=== PATIENT | male | born 1980 | race Caucasian/White ===

== ENCOUNTER 2016-09-27 21:15 | Emergency (ER) | payer OTHER ==
[~2016-09-27] VITALS: Ht 172.7 cm; Wt 70.3 kg
[2016-09-27 21:16] VITALS: BP_SYST 115
[2016-09-27] MEDS ORDERED: DIPH-TET-PERTUS Vaccine 0.5 ML VIAL (ADACEL) IM ONE (22:15)
[2016-09-27 22:30] VITALS: BP_SYST 121
== END 2016-09-27 22:30 | disposition home or self-care (01) ==
LOC: SED 21:15
DX: S51.812A Laceration without foreign body of left forearm, initial encounter (principal); W45.8XXA Other foreign body or object entering through skin, initial encounter; Y93.89 Activity, other specified; Y92.89 Other specified places as the place of occurrence of the external cause; Y99.8 Other external cause status
CPT/HCPCS: 90715; 99283

== ENCOUNTER 2019-08-05 09:39 | Emergency (ER) | payer OTHER ==
[~2019-08-05] VITALS: Ht 172.7 cm; Wt 65.8 kg
[2019-08-05 09:46] VITALS: BP_SYST 136
--- NOTE | 2019-08-05 09:50 | NUR ---
ambulated to bed 4
--- NOTE | 2019-08-05 09:55 | NUR ---
Pt walked in to ER with c/o left thumb laceration. Reports he cut it with a kitchen knife last night. States pain is 2/10. Denies any other trauma. V/S stable, pt is afebrile. Currently resting in bed, will continue to monitor.
[2019-08-05] MEDS ORDERED: DIPH-TET-PERTUS Vaccine 0.5 ML VIAL (ADACEL) I.M. ONE (10:00)
[2019-08-05] MEDS ORDERED: LIDOCAINE 1% 10 MG/ML, 20 ML MDV SUBCUT ONE (10:00)
[2019-08-05] MEDS ORDERED: BACITRACIN 1 GM OINT TP ONE (10:00)
--- NOTE | 2019-08-05 10:00 | NUR ---
ER Dr. Logan at bedside examining patient.
--- NOTE | 2019-08-05 10:05 | NUR ---
Wound irrigated with NS and betadine. Laceration kit and sutures at bedside for .
--- NOTE | 2019-08-05 10:10 | NUR ---
Tetanus shot ordered, pt states he had it last year while here in ER for a laceration to his left forearm. aware
--- NOTE | 2019-08-05 10:30 | NUR ---
Patient given written and verbal discharge instructions and verbalizes understanding. ER MD discussed with patient the results and treatment provided. Patient in stable condition. ID arm band removed. Rx of Tylenol and Bacitracin given. Patient educated on pain management and to follow up with PMD. Pain Scale 2. Opportunity for questions provided and answered. Medication side effect fact sheet provided.
[2019-08-05 10:36] VITALS: BP_SYST 136
== END 2019-08-05 10:36 | disposition home or self-care (01) ==
LOC: SED 09:39
DX: S61.012A Laceration without foreign body of left thumb without damage to nail, initial encounter (principal); W45.8XXA Other foreign body or object entering through skin, initial encounter; Y93.89 Activity, other specified; Y92.89 Other specified places as the place of occurrence of the external cause; Y99.8 Other external cause status
CPT/HCPCS: 12001; 99282; J2001; 90715